=== PATIENT | male | born 1960 | race Caucasian/White ===

== ENCOUNTER 2024-03-12 10:19 | Day surgery (SDC) | payer MEDICARE, OTHER, SELFPAY ==
[2024-03-12] VITALS (22 sets, daily range): BP systolic 133–174; BP diastolic 67–97; BMI 39.2
[2024-03-12] MEDS: NSS 500 IV (10:54)
[2024-03-12 12:13] LABS: Hematocrit 41.2 % (39.0-52.0); Hemoglobin 14.7 g/dL (13.0-18.0); Mean Corp Hgb Conc. 35.7 g/dL (33.0-37.0); Mean Corpuscular Hgb 31.6 pg (27.0-31.0); Mean Corpuscular Volume 88.6 fL (80.0-94.0); Mean Platelet Volume 10.3 fL (7.4-10.4); Platelet Count 211 10^3/uL (130-400); Red Blood Cell Count 4.65 10^6/uL (4.70-6.10); Red Cell Dist. Width 11.9 % (11.5-14.5); White Blood Cell Count 7.8 10^3/uL (4.8-10.8)
[2024-03-12 12:25] LABS: ACT-LR - POC 218 Seconds (116-155)
--- NOTE | 2024-03-12 12:32 | ITS.CL.ANGIO ---
[facility] - Angioplasty
Angioplasty
Procedure Report:
LEFT HEART CATHETERIZATION
Date of Procedure: March 12, 2024
Procedures performed:
1: Coronary angiography
2: Left ventricular hemodynamic assessment
3: Percutaneous coronary intervention left anterior descending artery with placement of a 3.5 x 38 mm [place] drug-eluting stent postdilated with IVUS guidance with a 3.5 mm diameter noncompliant balloon proximally and distally and a 4.0 mm diameter
noncompliant balloon in the midportion
Primary Care Physician: Emilee IGLESIAS
Primary Liturgical Music Director: Dr. Sergio Solomon
INDICATION: The patient is a 63-year-old man with a past medical history significant for hypertension hyperlipidemia who presents with crescendo angina. Nuclear perfusion imaging suggest anterior and inferior ischemia.
ACCESS: The patient was prepped and draped in usual sterile fashion. A 6 [place] sheath was placed in the right radial artery using the Seldinger over the wire technique.
HEMODYNAMIC FINDINGS (mmHg):
LV(s/d,EDP): 142/13, 21
Ao(s/d,m): 142/80, 107
ANGIOGRAPHIC FINDINGS:
Single-plane Left Ventriculography in [facility] Projection: Not done. Normal LVEF by recent echo.
Coronary Angiography:
Dominance: Left
Left Main: Normal
Left Anterior Descending: The left anterior descending artery is a relatively large caliber vessel that gives rise to 1 major diagonal branch takeoff in the midportion. The proximal LAD has a to 90% stenosis. At the takeoff of the diagonal branch
there is negative remodeling without stenosis however there is a smooth 80% stenosis in the true LAD just after the diagonal takeoff. The remainder the vessel is widely patent. There is normal flow in both the distal LAD and the widely patent
diagonal branch.
Ramus intermedius: There is a large caliber ramus intermedius branch present which is widely patent.
Left Circumflex: The left circumflex is a large-caliber dominant vessel that gives rise to a small first obtuse marginal branch, a small second obtuse marginal branch, large third obtuse marginal branch and small diminutive left-sided posterior
descending artery. These vessels are widely patent with normal flow.
Right Coronary: The right coronary artery was engaged with a 6 [place] AL-1 diagnostic catheter and has a somewhat inferior and anterior takeoff. The right coronary artery is widely patent and distally gives rise to a very diminutive small distal
vessel that feeds the basal septum. This vessel is widely patent with only mild luminal irregularities.
Percutaneous Coronary Intervention (PCI): In light of the above angiographic findings I elected proceed with PCI of the LAD. The patient was pretreated with aspirin and unfractionated heparin was given. A loading dose of clopidogrel 600 mg was
given on the table at the end of the procedure. A 6 [place] XB 3.5 guiding catheter was used to engage the left main. A Hi-Torque floppy wire was easily advanced across the lesion and into the distal LAD. Predilation was performed with a 2.25 x 20
mm balloon and distal to proximal fashion. Next a 3.5 x 38 mm [place] drug-eluting stent was deployed at 14 jossy. Intravascular ultrasound imaging was done to assess the size in the distal mid and proximal portions of the stented segment. There was
negative remodeling in the center of this stented segment and I chose to post dilate this area with a slightly larger 4.0 mm diameter noncompliant balloon at 16 jossy. The distal and proximal ends of the well opposed stent were postdilated with a 3.5
mm diameter noncompliant balloon at 16 jossy.
FINAL RESULT: 0% in-stent residual stenosis with an outstanding angiographic result and ERI-3 flow in all vessels.
Fluoroscopy Time (min): 10.9
Radiation Dose (mGy): 1080
DAP (Gy.cm2): 60
Closure device: None. A TR band was applied for hemostasis at the right wrist.
Complications: None.
ASSESSMENT:
1: Successful PCI of the LAD with placement of drug-eluting stent under IVUS guidance.
2: Mildly elevated left regular filling pressures.
CONCLUSIONS and RECOMMENDATIONS:
1: Routine post drug-eluting stent medical therapy and monitoring. Dual antiplatelet therapy with aspirin and clopidogrel 75 mg daily uninterrupted for a year and then aspirin 81 mg daily for life.
2: Medical therapy for coronary artery disease, hypertension, and hyperlipidemia.
Majo aNvarro M.D.
Copy to: Emilee IGLESIAS
[2024-03-12 13:15] LABS: Alkaline Phosphatase 53 U/L (38-126); Blood Urea Nitrogen 17 mg/dl (9-20); Carbon Dioxide 23 mmol/L (22-30); Chloride 104 mmol/L (98-107); Estimated Creatinine Clearance 98 ml/min; Glucose 135 mg/dl (70-99); Potassium 4.5 mmol/L (3.5-5.1); Sodium 138 mmol/L (135-145); eGFR > 60.00
[2024-03-12 13:16] LABS: ALT (SGPT) 43 U/L (0-50); AST (SGOT) 33 U/L (17-59); Albumin 4.6 g/dl (3.5-5.0); Calcium 9.4 mg/dl (8.4-10.2); Total Bilirubin 0.8 mg/dl (0.2-1.3); Total Protein 7.3 g/dl (6.3-8.2)
--- NOTE | 2024-03-12 16:21 | W.PN.UPDATE ---
Update Note
Progress Note Update
63 yo WM s/p PCI LAD (same day). He denies cp, sob, abigail diet, voiding, R rad TR band in place, EKG SR no ST changes. He will be on DAPT ASA/Plavix. Cardiac rehab c/s. He will f/u Dr. Solomon in 1 mon. He is for d/c home after 5pm if rad site stable.
Procedures performed:
1: Coronary angiography
2: Left ventricular hemodynamic assessment
3: Percutaneous coronary intervention left anterior descending artery with placement of a 3.5 x 38 mm [place] drug-eluting stent postdilated with IVUS guidance with a 3.5 mm diameter noncompliant balloon proximally and distally and a 4.0 mm diameter
noncompliant balloon in the midportion
[2024-03-12] MEDS: TYLENOL 650 MG PO (17:14)
[2024-03-12] MEDS: ZESTRIL 10 MG PO (17:29)
[2024-03-13 11:49] LABS: ACT-LR - POC > 397 Seconds (116-155)
== END 2024-03-12 18:47 | disposition home or self-care (01) ==
LOC: CATH 10:19
PROVIDERS: ATTENDING PHYSICIAN Internal Medicine Interventional Cardiology; FAMILY PHYSICIAN Nurse Practitioner Family; OTHER PHYSICIAN Internal Medicine Cardiovascular Disease
DX: I25.110 Atherosclerotic heart disease of native coronary artery with unstable angina pectoris (principal); E78.5 Hyperlipidemia, unspecified; I10 Essential (primary) hypertension; Z79.02 Long term (current) use of antithrombotics/antiplatelets; Z79.82 Long term (current) use of aspirin
CPT/HCPCS: 92978; 80053; 85027; 85347; 93005; 93458; C1725; C1753; C1769; C1874; C1887; C1894; C9600; Q9967